=== PATIENT | male | born 1990 | race Caucasian/White ===

== ENCOUNTER 2021-10-21 21:52 | Emergency (ER) | payer OTHER, MEDICAID, SELFPAY ==
[2021-10-21 21:55] VITALS: BP 120/72; PULSE 105; RESP 16; TEMP 36.6; O2SAT 97; BMI 30.8
[2021-10-21] MEDS: ACETAMINOPHEN 325 MG TABLET 975 MG PO (22:12)
[2021-10-21 22:24] LABS: COVID19 -Nasal RAPID POSITIVE (Negative)
--- NOTE | 2021-10-21 22:29 | ED.GENADULT ---
HPI - General Adult General Chief complaint: Upper Respiratory Symptoms Stated complaint: covid + with symptoms Time Seen by Provider: 10/21/21 22:07 Source: patient Mode of arrival: Ambulatory History of Present Illness HPI narrative: Patient is a 31-year-old male. Had COVID last June. Is on immunized. Symptoms resolved from that visit. Has congestion, headache, fever, sweats for the past 24 hours. Had a positive home COVID test. Is here for a confirmatory test that he can give to his work. Related Data Home Medications Medication Instructions Recorded Confirmed No Known Home Medications 10/21/21 10/21/21 Allergies Allergy/AdvReac Type Severity Reaction Status Date / Time No Known Drug Allergies Allergy Verified 10/21/21 22:01 Review of Systems Constitutional Constitutional: Reports system reviewed and no additional complaints, except as documented Cardiovascular Cardiovascular: Reports system reviewed and no additional complaints, except as documented Respiratory Respiratory: Reports system reviewed and no additional complaints, except as documented Gastrointestinal Gastrointestinal: Reports system reviewed and no additional complaints, except as documented Integumentary/Breasts Skin/Breast: Reports system reviewed and no additional complaints, except as documented Neurologic Neurologic: Reports system reviewed and no additional complaints, except as documented Hematologic/Lymphatic On Anticoagulants: No Patient History Medical History Boxers fracture COVID-19 Social History Smoking Status: Current every day smoker Smoking Status: Current every day smoker tobacco type: cigarettes alcohol intake frequency: 0-2 drinks per day Substance Use Type: former substance user Exam Initial Vital Signs Initial Vital Signs: Vital Signs Temperature 97.8 F 10/21/21 21:55 Pulse Rate 105 H 10/21/21 21:55 Respiratory Rate 16 10/21/21 21:55 Blood Pressure 120/72 10/21/21 21:55 Pulse Oximetry 97 10/21/21 21:55 Const General: cooperative and healthy appearing Resp Effort & Inspection: normal respiratory effort Auscultation: clear to auscultation bilaterally Cardio Rate: regular rate Rhythm: regular rhythm Skin General: no rashes or lesions noted Neuro General: patient alert, patient awake, patient oriented x3 and moves all extremities Extrem General: normal to inspection and capillary refill normal Psych Appearance: grossly normal and well kempt Course Orders Ordered: ED Orders 10/21/21 21:56 COVID19 -Nasal swab/Pre-Proc Stat Discontinued Medications Acetaminophen (Acetaminophen 325 Mg Tablet) 975 mg PO NOW ONE Stop: 10/21/21 22:05 Last Admin: 10/21/21 22:12 Dose: 975 mg Documented by: MANUEL Vital Signs Vital signs: Vital Signs - 8 hr 10/21/21 21:55 10/21/21 22:33 Temperature 97.8 F Pulse Rate 105 H 97 H Respiratory Rate 16 18 Blood Pressure 120/72 120/72 Pulse Oximetry 97 99 Medical Decision Making Lab Data Labs: Lab Results 10/21/21 Range/Units 21:56 SARS-CoV-2 (PCR) Positive H (Negative) MDM Narrative Medical decision making narrative: Patient is afebrile. No respiratory distress, clear lung exam. Not hypoxic. Not febrile. Not toxic. No indication for admission to the hospital. He was given a copy of his positive COVID test to take to work. He was given strict return precautions and follow-up instructions. He expressed understanding and agreement. Discharge Plan Departure Patient Disposition: Home Clinical Impression: COVID-19 Instructions: Coronavirus Disease 2019 Activity Restrictions/Additional Instructions: Your positive for COVID-19. You can take Tylenol for any fevers or body aches. Follow-up current CDC guidelines with regard to quarantine. Return to the emergency department for any new or worsening symptoms. Prescriptions: No Action No Known Home Medications 0RF
[2021-10-21 22:33] VITALS: BP 120/72; PULSE 97; RESP 18; O2SAT 99
== END 2021-10-21 22:38 | disposition home or self-care (01) ==
PROVIDERS: Emergency Provider Emergency Medicine
DX: U07.1 COVID-19 (principal)
CPT/HCPCS: 87635; 99283; C9803